=== PATIENT | male | born 1955 | race Caucasian/White ===

== ENCOUNTER 2016-06-16 17:05 | Emergency (ER) | payer MEDICARE, SELFPAY ==
[~2016-06-16 17:05] MED LIST: ASPIR 8181 MG PO
[2016-10-16] MEDS ORDERED: LIPITOR10 MG PO (02:04)
[2016-10-16] MEDS ORDERED: COLCRYS0.6 MG PO (02:05)
[2016-10-17] MEDS ORDERED: CORDARONE 200M200 MG PO (10:02)
[2016-10-17] MEDS ORDERED: ELIQUIS 5 MG TAB5 MG PO (10:07)
[2016-10-17] MEDS ORDERED: ASPIRIN CHEWABL81 MG PO (10:09)
== END 2016-06-16 21:03 | disposition home or self-care (01) ==
LOC: ER1 17:05
DX: L03.116 Cellulitis of left lower limb (principal); E11.628 Type 2 diabetes mellitus with other skin complications; J44.9 Chronic obstructive pulmonary disease, unspecified; I11.0 Hypertensive heart disease with heart failure; I50.9 Heart failure, unspecified
CPT/HCPCS: 99283

== ENCOUNTER 2016-06-26 11:02 | Inpatient (IN) | payer MEDICARE, SELFPAY ==
[~2016-06-26] VITALS: Ht 175.3 cm; Wt 104.3 kg
[2016-06-26 12:26] LABS: HEMOGLOBIN 12.2 gm/dl (14.0-17.5); RED BLOOD COUNT 4.97 M/UL (4.20-5.50); WHITE BLOOD COUNT 9.9 K/UL (4.5-11.0)
[2016-06-27] MEDS ORDERED: NEURONTIN 400400 MG PO (00:49)
[2016-06-27] MEDS ORDERED: GLUCOTROL 10 MG10 MG PO (00:49)
[2016-06-27] MEDS ORDERED: LOPRESSOR 50 MG50 MG PO (00:50)
[2016-06-27] MEDS ORDERED: KEFLEX500 MG PO (00:50)
[2016-06-27] MEDS ORDERED: ENTRESTO PO (00:52)
[2016-06-27] MEDS ORDERED: ELIQUIS5 MG PO (00:53)
[2016-06-27] MEDS ORDERED: INDOMETHACIN50 MG PO (00:53)
[2016-06-27] MEDS ORDERED: JANUMET 50-1,01 EACH PO ×2 (00:54→01:04)
[2016-06-27] MEDS ORDERED: TOUJEO SQ (01:01)
[2016-06-27 05:25] LABS: HEMOGLOBIN 11.2 gm/dl (14.0-17.5); RED BLOOD COUNT 4.58 M/UL (4.20-5.50)
[2016-06-30] MEDS ORDERED: TYLENOL 325MG325 MG PO (16:35)
[2016-06-30] MEDS ORDERED: BACTRIM DS TAB1 EACH PO (16:38)
[2016-06-30] MEDS ORDERED: CIPRO500 MG PO (16:38)
[2016-06-30] MEDS ORDERED: BACTROBAN OINT22 GM (16:39)
[2016-06-30] MEDS ORDERED: LEVEMIR100 UNIT/1 SC (16:50)
[2016-10-16] MEDS ORDERED: LIPITOR10 MG PO (02:04)
[2016-10-16] MEDS ORDERED: COLCRYS0.6 MG PO (02:05)
[2016-10-17] MEDS ORDERED: CORDARONE 200M200 MG PO (10:02)
[2016-10-17] MEDS ORDERED: ELIQUIS 5 MG TAB5 MG PO (10:07)
[2016-10-17] MEDS ORDERED: ASPIRIN CHEWABL81 MG PO (10:09)
== END 2016-06-30 17:20 | disposition home or self-care (01) | DRG 603 ==
LOC: ER1 11:02 → M/S 13:25 → ZEROF 13:25 → M/S 22:45
PROVIDERS: Emergency Medicine; Surgery; ADMIT Emergency Medicine
PROC: 0J9P3ZZ Drainage of Left Lower Leg Subcutaneous Tissue and Fascia, Percutaneous Approach (ICD-10-PCS; principal; 2016-06-28 07:30)
DX: L03.116 Cellulitis of left lower limb (principal); I25.10 Atherosclerotic heart disease of native coronary artery without angina pectoris; I25.5 Ischemic cardiomyopathy; L02.416 Cutaneous abscess of left lower limb; E11.42 Type 2 diabetes mellitus with diabetic polyneuropathy; I48.2 Chronic atrial fibrillation; I25.2 Old myocardial infarction; E11.22 Type 2 diabetes mellitus with diabetic chronic kidney disease; I12.9 Hypertensive chronic kidney disease with stage 1 through stage 4 chronic kidney disease, or unspecified chronic kidney disease; N18.3 Chronic kidney disease, stage 3 (moderate); K74.60 Unspecified cirrhosis of liver; B95.62 Methicillin resistant Staphylococcus aureus infection as the cause of diseases classified elsewhere; K59.00 Constipation, unspecified; Z79.82 Long term (current) use of aspirin; Z79.899 Other long term (current) drug therapy; Z79.84 Long term (current) use of oral hypoglycemic drugs; E78.5 Hyperlipidemia, unspecified; M10.9 Gout, unspecified; G89.29 Other chronic pain; E11.21 Type 2 diabetes mellitus with diabetic nephropathy; G47.30 Sleep apnea, unspecified; M54.5 Low back pain; Z86.73 Personal history of transient ischemic attack (TIA), and cerebral infarction without residual deficits; Z95.1 Presence of aortocoronary bypass graft
CPT/HCPCS: 36415; 73700; 80048; 80053; 80202; 82962; 83605; 85025; 85610; 85730; 86140; 87040; 87070; 87077; 87186; 87205; 96365; 96366; 96375; 99284; J1885; J2250; J2270; J2370; J2405; J3370; J7030; J7070; J7120

== ENCOUNTER 2016-08-24 09:37 | Inpatient (IN) | payer MEDICARE ==
[~2016-08-24] VITALS: Ht 175.3 cm; Wt 104.6 kg
[~2016-08-24 09:37] MED LIST changes: +BACTRIM DS TAB1 EACH PO; +BACTROBAN OINT22 GM; +CIPRO500 MG PO; +ELIQUIS5 MG PO; +ENTRESTO PO; +GLUCOTROL 10 MG10 MG PO; +INDOMETHACIN50 MG PO; +JANUMET 50-1,01 EACH PO; +KEFLEX500 MG PO; +LEVEMIR100 UNIT/1 SC; +LOPRESSOR 50 MG50 MG PO; +NEURONTIN 400400 MG PO; +TOUJEO SQ; +TYLENOL 325MG325 MG PO
[2016-08-24] MEDS ORDERED: LASIX 40 MG TAB40 MG PO (11:45)
[2016-08-24] MEDS ORDERED: KLOR-CON 1010 MEQ PO (11:46)
[2016-08-24] MEDS ORDERED: INDOMETHACIN50 MG PO (11:47)
[2016-08-25 05:19] LABS: HEMOGLOBIN 10.7 gm/dl (14.0-17.5); RED BLOOD COUNT 4.76 M/UL (4.20-5.50); WHITE BLOOD COUNT 5.8 K/UL (4.5-11.0)
[2016-08-26 06:04] LABS: HEMOGLOBIN 10.3 gm/dl (14.0-17.5); RED BLOOD COUNT 4.55 M/UL (4.20-5.50); WHITE BLOOD COUNT 7.2 K/UL (4.5-11.0)
[2016-08-27 03:49] LABS: HEMOGLOBIN 10.3 gm/dl (14.0-17.5); RED BLOOD COUNT 4.64 M/UL (4.20-5.50); WHITE BLOOD COUNT 7.9 K/UL (4.5-11.0)
[2016-08-29 04:05] LABS: HEMOGLOBIN 10.1 gm/dl (14.0-17.5); RED BLOOD COUNT 4.59 M/UL (4.20-5.50); WHITE BLOOD COUNT 8.1 K/UL (4.5-11.0)
[2016-08-29] MEDS ORDERED: IMDUR ER TAB 3030 MG PO (10:29)
[2016-08-29] MEDS ORDERED: ALDACTONE 25MG25 MG PO (10:33)
[2016-08-29] MEDS ORDERED: LEVAQUIN TAB 5500 MG PO (10:38)
[2016-08-29] MEDS ORDERED: NORCO 5-325 TA1 EACH PO (10:39)
[2016-10-16] MEDS ORDERED: LIPITOR10 MG PO (02:04)
[2016-10-16] MEDS ORDERED: COLCRYS0.6 MG PO (02:05)
[2016-10-17] MEDS ORDERED: CORDARONE 200M200 MG PO (10:02)
[2016-10-17] MEDS ORDERED: ELIQUIS 5 MG TAB5 MG PO (10:07)
[2016-10-17] MEDS ORDERED: ASPIRIN CHEWABL81 MG PO (10:09)
== END 2016-08-29 09:00 | disposition home or self-care (01) | DRG 245 ==
LOC: ER1 09:37 → ZEROF 10:30 → PROG CARE 08-25 00:48
PROVIDERS: Emergency Medicine; ADMIT Emergency Medicine
PROC: 0JH60PZ Insertion of Cardiac Rhythm Related Device into Chest Subcutaneous Tissue and Fascia, Open Approach (ICD-10-PCS; principal; 2016-08-28)
PROC: 0JH608Z Insertion of Defibrillator Generator into Chest Subcutaneous Tissue and Fascia, Open Approach (ICD-10-PCS; principal; 2016-08-28)
DX: I13.0 Hypertensive heart and chronic kidney disease with heart failure and stage 1 through stage 4 chronic kidney disease, or unspecified chronic kidney disease (principal); I50.23 Acute on chronic systolic (congestive) heart failure; I47.2 Ventricular tachycardia; N18.3 Chronic kidney disease, stage 3 (moderate); I95.9 Hypotension, unspecified; I25.119 Atherosclerotic heart disease of native coronary artery with unspecified angina pectoris; I25.5 Ischemic cardiomyopathy; I48.0 Paroxysmal atrial fibrillation; E78.00 Pure hypercholesterolemia, unspecified; E66.9 Obesity, unspecified; M19.90 Unspecified osteoarthritis, unspecified site; E11.22 Type 2 diabetes mellitus with diabetic chronic kidney disease; E11.42 Type 2 diabetes mellitus with diabetic polyneuropathy; Z68.34 Body mass index [BMI] 34.0-34.9, adult; E78.5 Hyperlipidemia, unspecified; M54.9 Dorsalgia, unspecified; Z72.3 Lack of physical exercise; I25.2 Old myocardial infarction; M25.552 Pain in left hip; M25.551 Pain in right hip; M25.562 Pain in left knee; M25.561 Pain in right knee; M25.542 Pain in joints of left hand; M25.541 Pain in joints of right hand; Z88.5 Allergy status to narcotic agent; Z79.01 Long term (current) use of anticoagulants; Z83.3 Family history of diabetes mellitus; Z95.1 Presence of aortocoronary bypass graft; Z82.49 Family history of ischemic heart disease and other diseases of the circulatory system; Z80.42 Family history of malignant neoplasm of prostate; Z79.82 Long term (current) use of aspirin; Z79.1 Long term (current) use of non-steroidal anti-inflammatories (NSAID); Z79.899 Other long term (current) drug therapy
CPT/HCPCS: ECHO; 33249; 36415; 71010; 78452; 80048; 80053; 80061; 82550; 82553; 82962; 83735; 83874; 83880; 84439; 84443; 84484; 85025; 85027; 85610; 85730; 93005; 93017; 93306; 93641; 96374; 99285; A9502; C1722; C1777; J1200; J1644; J1650; J2250; J2270; J2405; J2785; J3010; J3370; J7040; J7050; J7070